=== PATIENT | female | born 1995 | race Caucasian/White ===

== ENCOUNTER 2016-09-30 04:59 | Emergency (ER) | payer OTHER ==
[~2016-09-30] VITALS: Ht 165.1 cm; Wt 81.5 kg
[~2016-09-30 04:59] MED LIST: ACET325T33 PO; DENIES MEDS; OMEP20CA16 PO; ONDA4TAB8 PO
[2016-09-30 05:10] VITALS: Ht 165.1 cm; Wt 81.5 kg
[2016-09-30] MEDS ORDERED: ONDANSETRON (ODT) 4 MG TAB ODT STA (06:35)
--- NOTE | 2016-09-30 06:46 | ERD ---
ER Documentation Chief Complaint Date/Time DATE: 09/30/16 TIME: 06:38 Chief Complaint abdominal pain with N/V/D started 1 hour [employer] HPI The patient is a 21-year-old female with no PMH here with nausea, vomiting, and abdominal pain since approximately 3 AM this morning. She had one episode of nonbloody, nonbilious vomitus. She had one episode of watery diarrhea. No melena no hematochezia. She believes that she got food poisoning. She ate leftovers last night at approximately 8 PM of rice, beans, salad, and carne asada. She denies any other symptoms or concerns at this time including, but not limited to fever, chills, headache, flank pain, dysuria. ROS All systems reviewed and are negative except as per history of present illness. Medications Home Meds Active Scripts Ondansetron Hcl* (Zofran*) 4 Mg Tablet, 4 MG PO Q6H for NAUSEA AND/OR VOMITING, #3 TAB Prov:JACLYN JUNG, [employer] 09/30/16 Acetaminophen* (Tylenol*) 325 Mg Tablet, 1 TAB PO Q6 Y for PAIN AND OR ELEVATED TEMP, #20 TAB Prov:Citlalli Boudreaux PA-C 06/30/16 Omeprazole* (Omeprazole*) 20 Mg Capsule.dr, 20 MG PO BID, #20 Prov:Citlalli Boudreaux PA-C 06/30/16 Ondansetron Hcl* (Zofran*) 4 Mg Tablet, 4 MG PO Q6H for NAUSEA AND/OR VOMITING, #30 TAB Prov:Citlalli Boudreaux PA-C 06/30/16 Reported Medications [Denies Meds] No Conflict Check 10/25/10 Allergies Allergies: Coded Allergies: No Known Allergies (Verified Allergy, Unknown, 10/25/10) PMhx/Soc Medical and Surgical Hx: pt denies Medical Hx, pt denies Surgical Hx History of Surgery: No Anesthesia Reaction: No Hx Neurological Disorder: No Hx Respiratory Disorders: No Hx Cardiac Disorders: No Hx Psychiatric Problems: No Hx Miscellaneous Medical Probl: No Hx Alcohol Use: No Hx Substance Use: No Hx Tobacco Use: No Smoking Status: Never smoker Physical Exam Vitals Vital Signs Date Time Temp Pulse Resp B/P Pulse Ox O2 Delivery O2 Flow Rate FiO2 09/30/16 07:58 98.2 69 18 108/64 100 Room Air 09/30/16 05:10 98.5 69 20 133/87 99 Physical Exam INITIAL VITAL SIGNS: Reviewed by me, afebrile, no tachycardia, no tachypnea, oximetry 99% on room air GENERAL: Alert. Well developed and well nourished. No acute distress. HEAD: Head is normocephalic. Atraumatic. EYES: EOMI. No scleral icterus. No conjunctival injection. ENT: External ears, nose, and mouth normal. Nasal passages patent. Moist mucous membranes. NECK: Supple. Full range of motion. Trachea midline. RESPIRATORY: No tachypnea. Clear to auscultation bilaterally. No wheezing, rales , or rhonchi. CV: Regular rate and rhythm. No murmurs, rubs, or gallops ABDOMEN: + Diffusely tender throughout the entire abdomen. + Guarding. Soft, non-distended. No rebound. No McBurney's point tenderness. Negative Crowe's sign. Bowel sounds normal in all quadrants. BACK: No CVA tenderness. Full ROM. EXTREMITIES: No obvious deformity. No clubbing or cyanosis. No edema. SKIN: Warm and dry. No diaphoresis. No obvious rashes or lesions. NEUROLOGIC: Alert and oriented x 3. Appropriate. Face is symmetric. Speech is normal. Moves all extremities equally. Result Diagram: 09/30/16 0640 09/30/16 0640 Results 24 hrs Laboratory Tests Test 09/30/16 06:40 Alanine Aminotransferase (ALT/SGPT) 34IU/L Albumin 4.3g/dl Albumin/Globulin Ratio 1.19 Alkaline Phosphatase 97IU/L Anion Gap 18 Aspartate Amino Transf (AST/SGOT) 29IU/L Basophils # 0.010^3/ul Basophils % 0.5% Blood Urea Nitrogen 13mg/dl Calcium Level 9.3mg/dl Carbon Dioxide Level 24mmol/L Chloride Level 104mmol/L Creatinine 0.75mg/dl Direct Bilirubin 0.00mg/dl Eosinophils # 0.310^3/ul Eosinophils % 3.4% Globulin 3.60g/dl Glucose Level 88mg/dl Hematocrit 40.8% Hemoglobin 13.9g/dl Indirect Bilirubin 0.2mg/dl Lipase 202U/L Lymphocytes # 3.610^3/ul Lymphocytes % 45.6% Mean Corpuscular Hemoglobin 29.6pg Mean Corpuscular Hemoglobin Concent 34.0g/dl Mean Corpuscular Volume 87.1fl Mean Platelet Volume 9.5fl Monocytes # 0.710^3/ul Monocytes % 9.1% Neutrophils # 3.310^3/ul Neutrophils % 41.4% Nucleated Red Blood Cells # 0.010^3/ul Nucleated Red Blood Cells % 0.0/100WBC Platelet Count 94732^3/UL Potassium Level 4.1mmol/L Red Blood Count 4.6910^6/ul Red Cell Distribution Width 13.3% Sodium Level 142mmol/L Total Bilirubin 0.2mg/dl Total Protein 7.9g/dl Urine Bilirubin NEGATIVE Urine Clarity CLEAR Urine Color LT. YELLOW Urine Glucose NEGATIVE% Urine Hemoglobin NEGATIVE Urine Ketones NEGATIVE Urine Leukocyte Esterase TRACE Urine Microscopic RBC NONE SEEN/HPF Urine Microscopic WBC 2-5/HPF Urine Nitrite NEGATIVE Urine Specific Bunch 1.020 Urine Squamous Epithelial Cells FEW Urine Total Protein NEGATIVE Urine Urobilinogen 0.2 E.U./dL Urine pH 6.0 White Blood Count 7.910^3/ul Current Medications Medications (Trade) Dose Ordered Sig/Nelson Route PRN Reason Start Time Stop Time Status Last Admin Dose Admin Ondansetron HCl (Zofran Odt) 4 mg ONCE STAT ODT 09/30/16 06:35 09/30/16 06:38 DC 09/30/16 06:44 Acetaminophen (Tylenol Tab) 650 mg ONCE ONCE PO 09/30/16 07:00 09/30/16 07:01 DC 09/30/16 06:44 Dicyclomine HCl (Bentyl) 20 mg ONCE ONCE PO 09/30/16 07:00 09/30/16 07:01 DC 09/30/16 06:54 Famotidine (Pepcid) 20 mg ONCE ONCE PO 09/30/16 07:30 09/30/16 07:31 DC 09/30/16 07:39 Procedures/MDM Nursing Notes Reviewed Previous Medical Records requested via [employer]. EMERGENCY DEPARTMENT COURSE / MEDICAL DECISION MAKING: The patient comes to the ED secondary to nausea, vomiting, and diarrhea since approximately 3 AM this morning. Differential diagnosis upon initial evaluation includes but is not limited to: Bowel obstruction, choledocholithiasis, appendicitis, diverticulitis, food poisoning, sepsis, ectopic , and others. The patient was treated with Tylenol 650mg p.o., Zofran 4 mg p.o., Bentyl 20mg p.o. with good relief. CBC: no e/o of systemic infection or severe anemia CMP: no e/o severe acidosis, alkalosis, renal failure, diabetic ketoacidosis, liver disease Lipase: no e/o pancreatitis Urine : Negative Urine: no e/o acute infection or hematuria Otherwise within normal limits, unremarkable, or as documented above. On reassessment, the patient's abdominal exam was completely benign. Her abdomen was soft, nontender to palpation, no guarding, no rebound, and normal bowel sounds in all quadrants. She requested to be discharged home at this time in order to rest. She stated that she was feeling well. Final impression: Nausea and vomiting Based on patient's history of present illness and physical examination the decision was made to discharge. The patient was re-evaluated after ED treatment and stabilizing measures, and symptoms have improved. Her repeat abdominal exam was benign. Given her general well appearance, normal vital signs, lab results, and benign physical exam, I have low suspicion at this time for appendicitis, cholecystitis, pancreatitis, ectopic , bowel obstruction , diverticulitis, or any other cause of acute surgical abdomen. There is no evidence of life threatening injuries or illnesses at this time. On re-examination, patient resting in no distress, stable vital signs, reports feeling better and safe for discharge with outpatient follow up here for a recheck in 8-12 hours. If the patient's symptoms have completely resolved within 8-12 hours, I also gave her the option of following up with her primary care provider within 1-2 days. Patient given return precautions. Patient verbalized understanding and agreed to return precautions. She will follow-up as directed. Patient's blood pressure was elevated but appears stable without evidence of hypertensive emergency, end organ damage, chest pain or shortness of breath. The patient was counseled about the risks of untreated hypertension and urged to pursue outpatient monitoring and therapy in 2-3 days with their primary care physician. Prescription Zofran Departure Diagnosis: Primary Impression: Nausea and vomiting Vomiting type: unspecified Vomiting Intractability: non-intractable Qualified Code: R11.2 - Non-intractable vomiting with nausea, unspecified vomiting type Condition: Stable JACLYN JUNG NP Sep 30, 2016 06:46
[2016-09-30 06:51] LABS: ADD UMIC YES; URINE BILIRUBIN (Dip) NEGATIVE (NEGATIVE); URINE BLOOD (Dip) NEGATIVE (NEGATIVE); URINE COLOR LT. YELLOW (YELLOW); URINE GLUCOSE (Dip) NEGATIVE (NEGATIVE); URINE KETONES (Dip) NEGATIVE (NEGATIVE); URINE LEUKOCYTE ESTERASE (Dip) TRACE (NEGATIVE); URINE NITRITE (Dip) NEGATIVE (NEGATIVE); URINE TOTAL PROTEIN (Dip) NEGATIVE (NEGATIVE); URINE UROBILINOGEN (Dip) 0.2 E.U./dL (0.1-1.0)
[2016-09-30 06:52] LABS: BASOPHILS % 0.5 % (0.0-2.0); EOSINOPHILS # 0.3 10^3/ul (0.0-0.5); EOSINOPHILS % 3.4 % (0.0-7.0); HEMATOCRIT 40.8 % (37.0-47.0); HEMOGLOBIN 13.9 g/dl (12.0-16.0); LYMPHOCYTES # 3.6 10^3/ul (0.8-2.9); LYMPHOCYTES % 45.6 % (15.0-51.0); MEAN CORPUSCULAR HEMOGLOBIN 29.6 pg (29.0-33.0); MEAN CORPUSCULAR VOLUME 87.1 fl (82.0-101.0); MEAN PLATELET VOLUME 9.5 fl (7.4-10.4); MONOCYTE # 0.7 10^3/ul (0.3-0.9); MONOCYTES % 9.1 % (0.0-11.0); NEUTROPHIL # 3.3 10^3/ul (1.6-7.5); NEUTROPHILS % 41.4 % (39.0-77.0); PLATELET COUNT 246 10^3/UL (140-440); RED BLOOD COUNT 4.69 10^6/ul (4.20-5.40); RED CELL DISTRIBUTION WIDTH 13.3 % (11.5-14.5); UNCORRECTED WBC 7.9 10^3/ul (4.8-10.8); WHITE BLOOD COUNT 7.9 10^3/ul (4.8-10.8)
[2016-09-30 06:58] LABS: CONDITION 1
[2016-09-30] MEDS ORDERED: DICYCLOMINE 10 MG CAP PO ONE (07:00)
[2016-09-30] MEDS ORDERED: ACETAMINOPHEN 325 MG TAB PO ONE (07:00)
[2016-09-30 07:03] LABS: SQUAMOUS EPITHELIAL CELL,UR FEW; URINE RBCS NONE SEEN /HPF (0)
[2016-09-30 07:07] LABS: ALBUMIN 4.3 g/dl (3.3-4.9)
[2016-09-30 07:08] LABS: POTASSIUM 4.1 mmol/L (3.5-5.1)
[2016-09-30 07:10] LABS: ALBUMIN/GLOBULIN RATIO 1.19; BILIRUBIN,INDIRECT 0.2 mg/dl (0-1.1); BILIRUBIN,TOTAL 0.2 mg/dl (0.2-1.3); CREATININE 0.75 mg/dl (0.44-1.00); TOTAL PROTEIN 7.9 g/dl (6.1-8.1)
[2016-09-30 07:11] LABS: CALCIUM 9.3 mg/dl (8.4-10.2)
[2016-09-30] MEDS ORDERED: FAMOTIDINE 20 MG TAB PO ONE (07:30)
[2016-09-30] MEDS ORDERED: ONDA4TAB8 PO (07:45)
[2016-09-30 07:58] VITALS: BP 108/64; PULSE 69; RESP 18; TEMP 98.2
== END 2016-09-30 07:59 | disposition home or self-care (01) ==
LOC: FTE 04:59
DX: R11.2 Nausea with vomiting, unspecified (principal)
CPT/HCPCS: 36415; 80053; 81001; 81003; 83690; 85025; 99283